=== PATIENT | female | born 1970 | race Caucasian/White ===

== ENCOUNTER 2025-02-21 17:45 | Outpatient (REF) | payer OTHER, SELFPAY ==
--- OUTSIDE RECORDS SUMMARY | 2025-02-21 10:55 | XMS_ITS | Continuity of Care Document ---
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 Medication Details Route Status Patient Instructions Prescription Expires Prescription Number Last Dispense Date Ordering Provider Order Date Order Qty Source AMOXICILLIN (amoxicilli n), 875 MG, TABLET, ORAL, [facility], 100 ea. BOTTLE Active [id number] 2023 20 Pharmac y Data Transac tion Service Facilit y DOXYCYCLINE HYCLATE (doxycyclin e hyclate), 100 MG, TABLET, ORAL, [facility], 50 ea. BOTTLE Active [id number] 2023 60 Pharmac y Data Transac tion Service Facilit y Social History Combined list of available smoking, tobacco, and other social history from Department of Defense and Veterans Affairs facilities. Social History Type Response Date Comment Sourc e This section is an empty social history section. [facility]
--- OUTSIDE RECORDS SUMMARY | 2025-02-21 17:49 | XMS_ITS | Clinical Summary ---
Author Organization Formerly [facility] Address [address] [place] [address] Care Team Providers Care Human Resources Trainee Name Role Phone Unavailable Primary Care Provider Unavailabl e Social History Tobacco Use Types Packs/Day Years Used Date Smoking Tobacco: Never Assessed Comments Unknown Sex and Gender Information Value Date Recorded Sex Assigned at Not on file Legal Sex Female 4:20 PM EDT Gender Identity Not on file Sexual Orientation Not on file Plan of Treatment Health Maintenance Due Date Last Done Comments Hepatitis C Virus Screening 1970 HIV Screening 10/29/1983 DTaP/Tdap/Td Vaccines (1 - Tdap) 1989 Hepatitis B Vaccines (1 of 3 - 19+ 3-dose series) 10/04 Pneumococcal Vaccines 50+ (1 of 1 - PCV) 2020 Zoster (Shingles) Vaccine (1 of 2) 2020 COVID-19 Vaccine (1 - 2023- season) 2024
--- OUTSIDE RECORDS SUMMARY | 2025-02-21 17:49 | XMS_ITS | Patient Health Record ---
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 Name Role Phone Jonathan Plata MD Primary Care Provider Unavailabl e Jadyn Molina Unavailable [phone] Reason For Referral No Information Medications Medication SIG (Take, Route, Frequency, Duration) Notes Start Date End Date Status Synthroid 75 MCG 1 tablet Orally Once a day Active Feldene 20 MG 1 capsule with food Orally Once a day; Duration: 30 day(s) 07/26/2018 Not-Taking Lo Loestrin Fe 1 MG-10 MCG / 10 MCG take 1 tablet by mouth once daily Oral; Duration: 30 Not-Taking Physical Therapy 3-4x per week for 3- 4 weeks 05/04/2016 Not-Taking Physical Therapy 3-4x per week for 3- 4 weeks Not-Taking Naproxen 375 MG 1 tablet Orally Twic e a day; Duration: 30 day(s) 03/04/2016 Not-Rohan ing Walker as directed 03/04/2016 Not-Rohan ing Percocet 5-325 MG 1 tablet as needed Orally every 6 hrs; Duration: as needed 03/04/2016 Not-Taking Social History Tobacco Use: Social History Observation Description Date Details (start date - stop date) Never Smoker NA - NA Tobacco Use/Smoking Question Answer Notes Are you a: nonsmoker Additional Findings: Tobacco Non-User Current no n-smoker Alcohol Screen Question Answer Notes Did you have a drink containing alcohol in the p ast year? No Points 0 Interpretation Negative Tobacco use other than smoking: Question Answer Notes Are you an other tobacco user? No Problems Problem Type SNOMED Code ICD Code Onset Dates Problem Status W/U Status Risk Notes Problem Primary osteoarthritis , right ankle and foot (M19.071) Active confirmed Plan Of Treatment Pending Test Test Name Order Date X ray : Foot, left 3V 07/26/[id number],[id number] TENDON SHEATH/LIGAMENT 0 12/13/[id number] TENDON SHEATH/LIGAMENT 0 03/27/2019 Insurance Providers Payer Name Payer Address Payer Phone Subscriber Number Group Number Insured Name Patient Relationship to Insured Coverage Start Date Coverage End Date [facility] [address] [place] [id number] Jonathan Agarwal Spouse - patient is the spouse of the insured Medical (General) History Medical History History ICD Code Thyroid disorder Chicken pox Surgical History Surgery Date(Month/Year) gall bladder removed 2008 thyroidectomy 2008 Jeremi Right w/aamir screw 03/2016
[2025-02-21 18:27] LABS: Appearance Urine Clear; Glucose Urine UA Negative (Negative); PH 6.0 (5.0-9.0); Specific Gravity - Urine 1.010 (1.005-1.025); UMIC TRIGGER UACC YES
[2025-02-21 18:30] LABS: UACC Culture Trigger YES
== END 2025-02-21 17:46 | disposition home or self-care (01) ==
LOC: HO.MANLNP 17:45
PROVIDERS: Visit Provider Physician Assistant
DX: N39.0 Urinary tract infection, site not specified (principal)
CPT/HCPCS: 81001; 87086